=== PATIENT | female | born 1995 | race Caucasian/White ===

== ENCOUNTER 2019-05-06 23:54 | Inpatient (IN) ==
[2019-05-07] MEDS ORDERED: ONDANSETRON 4 MG/2 ML VIAL IV PRN (01:02)
[2019-05-07] MEDS ORDERED: AMPICILLIN INJ 2,000 MG in SODIUM CHLORIDE 0.9% 100 ML IV ONE (01:19)
[2019-05-07 01:36] LABS: Basophils % 0.2 % (0.0-0.8); Eosinophils # 0.2 10*3/uL (0.0-0.87); Eosinophils % 1.4 % (0.00-10.9); Hematocrit 35.7 VOL% (35.7-47.0); Hemoglobin 11.8 GM/DL (12.0-16.0); Immature Granulocytes % 0.7 %; Lymphocytes # 3.2 10*3/uL (1.4-4.0); Lymphocytes % 22.9 % (21.3-54.2); Mean Corpuscular HGB Conc 33.1 GM/DL (32-36); Mean Corpuscular Volume 86.2 FL (87-102); Mean Platelet Volume 10.6 FL (9.6-12.0); Monocytes % 7.6 % (1.7-12.7); Neutrophils % 67.2 % (38.7-73.9); Platelet Count 346 T/CUMM (130-400); Red Blood Count 4.14 MC/CUMM (3.8-5.5); Red Cell Distribution Width 13.2 % (9.3-17.3)
[2019-05-07] MEDS: AMPICILLIN INJ 2,000 MG in SODIUM CHLORIDE 0.9% 100 ML IV SCH ×2 (02:03→08:37)
[2019-05-07] MEDS: LACTATED RINGERS 1,000 ML IV SCH ×2 (03:08→16:47)
[2019-05-07] MEDS ORDERED: BUTORPHANOL 2 MG/ML VIAL IV PRN (06:22)
[2019-05-07] MEDS ORDERED: MEPERIDINE 50 MG/1 ML VIAL IV PRN (11:31)
[2019-05-07] MEDS: AMPICILLIN INJ 1,000 MG in SODIUM CHLORIDE 0.9% 100 ML IV SCH ×2 (12:18→16:47)
[2019-05-07] MEDS ORDERED: LACTATED RINGERS 1,000 ML IV ONE ×2 (13:49→19:36)
[2019-05-07] MEDS ORDERED: NALOXONE 0.4 MG/ML VIAL IV PRN (13:49)
[2019-05-07] MEDS ORDERED: CITRIC ACID/SODIUM CITRATE 30 ML UDCUP PO ONE (13:49)
[2019-05-07] MEDS ORDERED: ePHEDrine 50 MG/ML AMP IV PRN (13:49)
[2019-05-07] MEDS ORDERED: FAMOTIDINE 20 MG/2 ML VIAL IV ONE (13:49)
[2019-05-07] MEDS ORDERED: hydrOXYzine HCL 25 MG/1 ML VIAL IM PRN (13:49)
[2019-05-07] MEDS ORDERED: diphenhydrAMINE 50 MG/1 ML VIAL IV PRN ×2 (13:49)
[2019-05-07] MEDS ORDERED: PROMETHAZINE 25 MG/1 ML VIAL IM PRN (13:49)
[2019-05-07] MEDS ORDERED: fentaNYL 2 MCG/ROPIV 0.2% EPID 100 ML EPIDURAL SCH (14:00)
[2019-05-07 15:20] LABS: Apearance,Urine CLEAR (Clear); Bilirubin,Urine Negative (Negative); Blood, Urine Small mg/dL (Negative); Glucose,Urine (UA) Negative (Negative); Ketones,Urine Negative (Negative); Mucus,Urine Occasional /LPF (Occasional); Nitrite,Urine Negative (Negative); Protein,Urine Negative; RBC,Urine 4 /HPF (0-4); Squamous Epithelial Cell,Urine Occasional /HPF (0-10); Urine Color Yellow (Yellow); Urine Specific Gravity 1.019 (1.001-1.035); Urine Urobilinogen < 2.0 EU/DL (0.2-1.0); WBC,Urine <1 /HPF (0-6)
[2019-05-07] MEDS ORDERED: ceFAZolin 2,000 MG in PREMIX 1 EACH IV ONE (18:03)
[2019-05-07] MEDS ORDERED: TERBUTALINE 1 MG/1 ML VIAL SUBCUT ONE (18:04)
[2019-05-07] MEDS ORDERED: TRANEXAMIC ACID 1,000 MG/10 ML VIAL ONE (18:05)
[2019-05-07] MEDS ORDERED: miSOPROStoL 200 MCG TABLET ONE ×2 (18:05→18:07)
[2019-05-07] MEDS ORDERED: CARBOPROST TROMETHAMINE 250 MCG/ML AMP IM ONE (18:06)
[2019-05-07] MEDS ORDERED: OXYTOCIN/LR 20 UNIT/1,000 ML BAG IV ONE ×3 (18:06→18:57)
[2019-05-07] MEDS ORDERED: METHYLERGONOVINE 0.2 MG/1 ML AMP ONE (18:06)
[2019-05-07] MEDS ORDERED: METHYLERGONOVINE 0.2 MG/1 ML AMP IM ONE (18:36)
[2019-05-07] MEDS ORDERED: ACETAMINOPHEN 325 MG TABLET PO PRN (18:57)
[2019-05-07] MEDS ORDERED: SIMETHICONE CHEW 80 MG TABLET PO PRN (18:57)
[2019-05-07] MEDS ORDERED: RHO(D) IMMUNE GLOBULIN 300 MCG SYRINGE IM ONE (18:57)
[2019-05-07] MEDS ORDERED: LACTATED RINGERS 1,000 ML IV SCH (19:00)
[2019-05-07 19:03] LABS: Cord Arterial Blood HCO3 22.5 MMOL/L; Cord Venous Blood HCO3 22.5 MMOL/L; Cord Venous Blood PCO2 47.6 MMHG
[2019-05-07 19:07] LABS: Cord Venous Blood PO2 19.5
[2019-05-07] MEDS ORDERED: MORPHINE 10 MG/10 ML VIAL ONE (19:30)
[2019-05-07] MEDS ORDERED: LIDOCAINE MPF 2% /EPI 20 ML VIAL ONE (19:34)
[2019-05-07] MEDS ORDERED: ONDANSETRON 4 MG/2 ML VIAL ONE (19:34)
[2019-05-07] MEDS ORDERED: PHENYLEPHRINE 1 MG/10 ML SYRINGE IV ONE (19:35)
[2019-05-07] MEDS ORDERED: PHENYLEPHRINE 10 MG/1 ML VIAL IV ONE (19:35)
[2019-05-07] MEDS ORDERED: SODIUM CHLORIDE 0.9% 100 ML IV ONE (19:35)
[2019-05-07] MEDS ORDERED: SODIUM BICARBONATE 10 MEQ/10 ML SYRINGE IV ONE (19:36)
[2019-05-07] MEDS: oxyCODONE/ACETAMINOPHEN 5-325 MG TABLET PO PRN (23:08)
[2019-05-08] MEDS: ceFAZolin 1,000 MG in SYRINGE 1 EACH IV SCH ×2 (02:04→10:22)
[2019-05-08 05:43] LABS: Basophils % 0.2 % (0.0-0.8); Eosinophils # 0.1 10*3/uL (0.0-0.87); Eosinophils % 0.3 % (0.00-10.9); Hematocrit 27.2 VOL% (35.7-47.0); Hemoglobin 8.9 GM/DL (12.0-16.0); Immature Granulocytes % 0.3 %; Immature Granulocytes Absolute 0.06 #; Lymphocytes # 3.1 10*3/uL (1.4-4.0); Lymphocytes % 17.4 % (21.3-54.2); Mean Corpuscular HGB Conc 32.7 GM/DL (32-36); Mean Corpuscular Volume 85.3 FL (87-102); Mean Platelet Volume 11.3 FL (9.6-12.0); Monocytes % 8.8 % (1.7-12.7); Platelet Count 284 T/CUMM (130-400); Red Blood Count 3.19 MC/CUMM (3.8-5.5); Red Cell Distribution Width 13.1 % (9.3-17.3); White Blood Count 17.7 T/CUMM (4-12)
[2019-05-08] MEDS ORDERED: FAMOTIDINE 20 MG TABLET PO PRN (07:36)
[2019-05-08] MEDS: DOCUSATE SODIUM 100 MG CAPSULE PO SCH ×2 (07:41→20:44)
[2019-05-08] MEDS: MULTIVITAMIN (PRENATAL) TABLET PO SCH (07:41)
[2019-05-08] MEDS: FERROUS SULFATE 325 MG TABLET PO SCH (07:41)
[2019-05-08] MEDS: oxyCODONE/ACETAMINOPHEN 5-325 MG TABLET PO PRN ×2 (10:18→16:43)
[2019-05-08] MEDS: IBUPROFEN 800 MG TABLET PO PRN ×2 (10:18→20:45)
[2019-05-08 15:36] LABS: Alanine Aminotransferase 10 U/L (13-56); Albumin 1.9 G/DL (3.4-5.0); Alkaline Phosphatase 115 U/L (45-117); Aspartate Amino Transferase 17 U/L (0-37); Bilirubin,Total < 0.39 MG/DL (0.2-1.0); Blood Urea Nitrogen 6 MG/DL (7-18); Calcium 8.4 MG/DL (8.5-10.1); Estimated Glom Filtration Rate 157 ML/MIN; Glucose 63 MG/DL (74-106); Osmolality,Calculated 274.4 MOS/KG (273-304); Total Protein 4.7 G/DL (6.4-8.3)
[2019-05-08] MEDS: MAGNESIUM HYDROXIDE SUSP 30 ML UDCUP PO PRN (17:01)
[2019-05-09] MEDS: MAGNESIUM HYDROXIDE SUSP 30 ML UDCUP PO PRN ×2 (02:01→09:20)
[2019-05-09] MEDS: oxyCODONE/ACETAMINOPHEN 5-325 MG TABLET PO PRN ×2 (04:14→11:16)
[2019-05-09 07:35] VITALS: BP 105/54
[2019-05-09] MEDS: MULTIVITAMIN (PRENATAL) TABLET PO SCH (09:20)
[2019-05-09] MEDS: DOCUSATE SODIUM 100 MG CAPSULE PO SCH ×2 (09:20→10:19)
[2019-05-09] MEDS: FERROUS SULFATE 325 MG TABLET PO SCH (09:20)
[2019-05-09] MEDS: IBUPROFEN 800 MG TABLET PO PRN (11:16)
[2019-05-09] MEDS ORDERED: DIPH/TET/ACEL PERT BOOSTER VACCINE 0.5 ML VIAL IM ONE (11:55)
[2019-05-09] MEDS ORDERED: INFLUENZA VIRUS VACCINE 0.5 ML SYRINGE IM ONE (11:56)
[2019-05-09] MEDS ORDERED: BISACODYL 10 MG SUPP RECTAL PRN (12:19)
== END 2019-05-09 16:05 | disposition home or self-care (01) | DRG 540 ==
LOC: N.LDOUT 23:54 → N.LD 23:55 → N.OB 05-08 01:56
PROVIDERS: ADMIT Obstetrics & Gynecology; ATTEND Obstetrics & Gynecology
PROC: LDCSECT (ICD-10-PCS; 2019-05-07 18:05)